=== PATIENT | male | born 1945 | race Caucasian/White ===

== ENCOUNTER 2021-05-27 02:00 | Inpatient (IN) ==
--- NOTE | 2021-05-27 02:14 | Emergency Department Note ---
Impression & Plan Atrial fibrillation with rapid ventricular response, COVID-19, Acute dyspnea Admit to the [facility] service ED Provider Note NAME: IVY LEWIS AGE: 75 SEX: M ARRIVES VIA: Walk-In INFORMANT: Patient ED PROVIDER(S): Angy Francis DO CHIEF COMPLAINT: Lightheadedness and weakness PLAN: Disposition: Admit to the [facility] Condition: Fair MEDICAL DECISION MAKING: This is a 75-year-old male patient presents to the emergency department with lightheadedness and weakness. Patient was noted to be in A. fib with RVR. This is a new finding for him. He was hemodynamically stable. However, the patient was noted to be COVID-positive. His rate was controlled with IV Cardizem. Out of concern for the atrial fibrillation and the thrombogenesis from COVID-19, the patient was bolused with IV heparin and started on a heparin drip. [facility] will evaluate for further management. Triage Nursing notes reviewed and agree with them. Additional history obtained from patient's is at the bedside Vital Signs: reviewed and remarkable for tachycardia and hypertension Differential diagnosis: Cardiac ischemia, electrolyte abnormality, congestive heart failure, STEMI, NSTEMI ER treatment provided: IV Cardizem IV heparin bolus IV heparin drip Diagnostics interpreted by me: ECG: A. fib with RVR at a rate of 111. There is no ST segment elevation or signs of ischemia. There is no ectopy. Cardiac Monitoring: A. fib at a rate of 108 Laboratory studies: See below Imaging studies: As per my interpretation Portable chest x-ray: Cardiomegaly with no acute pulmonary infiltrates or consolidations HPI: 75/M arrives for evaluation of lightheadedness and weakness. Patient has noticed over the past 2 or 3 days that he has had episodes of lightheadedness and weakness. He explains that he develops this warm feeling or sensation and then quickly becomes lightheaded and weak and sometimes feels short of breath. He describes his legs as feeling like rubber. He has never had these episodes before and they seem to resolve if he sits down. Patient has a past medical history of hypertension for which she takes verapamil. ROS: See above HPI for pertinent positives & negatives. A total of 10 systems reviewed and were otherwise negative. PAST MEDICAL HISTORY:Hypertension and gout; previous episode of pneumonia PAST SURGICAL HISTORY:See Below FAMILY HISTORY:See Below SOCIAL HISTORY:Patient lives with his ; quit smoking 50 years ago HOME MEDICATIONS:See list ALLERGIES:See list VITALS:See Below PHYSICAL EXAMINATION: HEENT: Head - normocephalic and atraumatic. Pupils are equal, round, and reactive to light. Extraocular eye muscles are intact, and sclera are anicter ic. Nose - moist nasal mucosa without discharge. Mouth - moist buccal mucosa. Oropharynx is nonerythematous and there is no tonsillar exudate or edema noted. Neck: Supple; no JVD or nuchal rigidity Heart: Tachycardic rate with an irregularly irregular rhythm there is a normal S1 and S2 with no murmurs, clicks, or gallops appreciated. Lungs: Clear to auscultation bilaterally with no wheezes, rales, or rhonchi. Abdomen: Soft, completely nontender, nondistended, with good bowel sounds. There are no palpable pulsatile masses or hepatosplenomegaly. There is no guarding, rigidity, or rebound noted. Extremities: No evidence of cyanosis, clubbing, or edema. There are easily palpable peripheral pulses. Skin: warm and dry with good turgor and no rashes. ED COURSE: Times/Reassessments: 0210 the patient was evaluated in room a 4. A complete history and physical was performed. An order was placed for continuous cardiac monitoring. Patient is in atrial fibrillation with a rapid ventricular response at a rate of 108 An IV lock was initiated and labs were drawn as above. A twelve-lead EKG was obtained. A portable chest x-ray was performed. The patient was given 10 mg of IV Cardizem. His nose was swabbed for COVID. The patient was bolused with IV heparin and started on a heparin drip. I have personally spent greater than 30 minutes of critical care time in the direct management of this patient. This includes bedside care, interpretation of diagnostic studies, and testing, discussion with consultants, patient, and family members, and other required patient management activities. This 30 minutes is in excess of all separately billable procedures. Angy Francis DO Past Med/Surg History Medical History (Updated 05/27/21 @ 05:22 by Angy Francis DO) Hernia Surgical History (Updated 06/15/19 @ 23:08 by Jordana Prather) H/O hernia repair Social History Smoking Status: Former smoker Tobacco Type: Cigarettes Preferred Language: Urdu Feels Safe at Home: Yes Allergies Allergies Allergy/AdvReac Type Severity Reaction Status Date / Time aspirin AdvReac Intermediate nose bleeds Unverified 05/27/21 02:07 Penicillins AdvReac Intermediate Rash Unverified 05/27/21 02:07 Home Meds Home Medications Medication Instructions Recorded Confirmed albuterol sulfate 90 mcg/actuation 2 puff INHALATION DAILY PRN 06/15/19 05/27/21 aerosol inhaler (Ventolin HFA) verapamil 180 mg tablet,extended 180 mg PO HS 06/15/19 05/27/21 release allopurinol 100 mg tablet 100 mg PO DAILY 05/27/21 05/27/21 colchicine 0.6 mg tablet 0.6 mg PO DAILY 05/27/21 05/27/21 cyclobenzaprine 10 mg tablet 10 mg PO TID PRN 05/27/21 05/27/21 fluticasone 500 mcg-salmeterol 50 1 inh INHALATION Q12 05/27/21 05/27/21 mcg/dose blistr powdr for inhalation Results & Data (ED) Vital Signs Vital Signs - 24 hr 05/27/21 02:02 05/27/21 02:39 05/27/21 02:52 Temperature 36.5 C Temperature Source Temporal Artery Scan Pulse Rate 88 Pulse Rate [Apical] 86 70 Pulse Rate from SpO2 Sensor Respiratory Rate 16 13 14 Respiratory Effort / Characteristics Non-Labored Non-Labored Spontaneous Respiratory Depth Normal Blood Pressure 145/105 H Blood Pressure [Left Arm] 160/97 H 131/78 Blood Pressure Mean 118 Blood Pressure Mean [Left Arm] 118 95 Blood Pressure Position Sitting Pulse Oximetry 97 96 97 Oxygen Delivery Method Room Air Room Air Room Air Sepsis Recent Fever Within 48 Hours No Sepsis New/Unexplained Change in Mental Status No Sepsis Action Taken by Nursing No Action Required 05/27/21 03:47 05/27/21 04:00 Temperature Temperature Source Pulse Rate 68 Pulse Rate [Apical] 72 Pulse Rate from SpO2 Sensor 79 Respiratory Rate 17 15 Respiratory Effort / Characteristics Respiratory Depth Blood Pressure 122/81 Blood Pressure [Left Arm] 114/75 Blood Pressure Mean 94 Blood Pressure Mean [Left Arm] 88 Blood Pressure Position Pulse Oximetry 96 96 Oxygen Delivery Method Room Air Sepsis Recent Fever Within 48 Hours Sepsis New/Unexplained Change in Mental Status Sepsis Action Taken by Nursing Laboratory Data Result diagrams: 05/27/21 02:20 05/27/21 02:20 Lab Results 05/27/21 05/27/21 05/27/21 Range/Units 02:20 02:20 02:20 WBC 3.70 L (4.8-10.8) K/uL RBC 4.99 (4.7-6.1) M/uL Hgb 16.6 (14.0-18.0) g/dL Hct 47.0 (42-52) % MCV 94.2 (80-100) fL MCH 33.3 (25-34) pg MCHC 35.3 (32-36) g/dL RDW Std Deviation 44.0 (36.4-46.3) fL RDW Coeff of Mae 12.8 (11.5-14.5) % Plt Count 162 (130-400) K/uL MPV 10.2 (7.4-10.4) fL Immature Gran % (Auto) 0.3 % Neut % (Auto) 35.1 % Lymph % (Auto) 43.8 % Lander % (Auto) 17.8 % Eos % (Auto) 2.7 % Baso % (Auto) 0.3 % Neut # (Auto) 1.30 L (1.4-6.5) K/uL Lymph # (Auto) 1.62 (1.2-3.4) K/uL Lander # (Auto) 0.66 H (0.11-0.59) K/uL Eos # (Auto) 0.10 (0-0.5) K/uL Baso # (Auto) 0.01 (0-0.2) K/uL Immature Gran # (Auto) 0.01 (0.00-0.02) K/uL PT (9.0-12.0) Seconds INR (0.9-1.1) APTT (21.0-31.0) Seconds PTT Ratio Sodium 136 (136-145) mmol/L Potassium 4.3 (3.5-5.1) mmol/L Chloride 107 (98-107) mmol/L Carbon Dioxide 22 (21-32) mmol/L Anion Gap 7 (3-11) BUN 16 (6-23) mg/dl Creatinine 1.15 (0.6-1.4) mg/dl Est Cr Clr Drug Dosing 64.4 ml/min Est GFR ( Amer) 71.2 ml/min Est GFR (Non-Af Amer) 61.5 ml/min BUN/Creatinine Ratio 13.9 (10-20) Glucose 116 H (70-99(Fasting)) mg/dl Calcium 9.5 (8.5-10.1) mg/dl Magnesium 2.0 (1.7-2.4) mg/dl Total Bilirubin 0.8 (0.2-1.0) mg/dl AST 45 H (13-39) U/L ALT 41 (7-52) U/L Alkaline Phosphatase 61 (34-104) U/L Troponin I < 0.03 (0-0.04) ng/ml Total Protein 7.4 (6.0-8.3) gm/dl Albumin 4.5 (3.4-5.0) gm/dl Globulin 2.9 (2.5-4.0) gm/dl Albumin/Globulin Ratio 1.6 (0.9-2) TSH 8.564 H (0.300-4.500) uIu/ml Free T4 0.80 (0.61-1.60) ng/dl SARS-CoV-2, RNA, NAAT (NEGATIVE) 05/27/21 05/27/21 Range/Units 02:20 02:57 WBC (4.8-10.8) K/uL RBC (4.7-6.1) M/uL Hgb (14.0-18.0) g/dL Hct (42-52) % MCV (80-100) fL MCH (25-34) pg MCHC (32-36) g/dL RDW Std Deviation (36.4-46.3) fL RDW Coeff of Mae (11.5-14.5) % Plt Count (130-400) K/uL MPV (7.4-10.4) fL Immature Gran % (Auto) % Neut % (Auto) % Lymph % (Auto) % Lander % (Auto) % Eos % (Auto) % Baso % (Auto) % Neut # (Auto) (1.4-6.5) K/uL Lymph # (Auto) (1.2-3.4) K/uL Lander # (Auto) (0.11-0.59) K/uL Eos # (Auto) (0-0.5) K/uL Baso # (Auto) (0-0.2) K/uL Immature Gran # (Auto) (0.00-0.02) K/uL PT 10.2 (9.0-12.0) Seconds INR 1.0 (0.9-1.1) APTT 26.8 (21.0-31.0) Seconds PTT Ratio 1.0 Sodium (136-145) mmol/L Potassium (3.5-5.1) mmol/L Chloride (98-107) mmol/L Carbon Dioxide (21-32) mmol/L Anion Gap (3-11) BUN (6-23) mg/dl Creatinine (0.6-1.4) mg/dl Est Cr Clr Drug Dosing ml/min Est GFR ( Amer) ml/min Est GFR (Non-Af Amer) ml/min BUN/Creatinine Ratio (10-20) Glucose (70-99(Fasting)) mg/dl Calcium (8.5-10.1) mg/dl Magnesium (1.7-2.4) mg/dl Total Bilirubin (0.2-1.0) mg/dl AST (13-39) U/L ALT (7-52) U/L Alkaline Phosphatase (34-104) U/L Troponin I (0-0.04) ng/ml Total Protein (6.0-8.3) gm/dl Albumin (3.4-5.0) gm/dl Globulin (2.5-4.0) gm/dl Albumin/Globulin Ratio (0.9-2) TSH (0.300-4.500) uIu/ml Free T4 (0.61-1.60) ng/dl SARS-CoV-2, RNA, NAAT POSITIVE A* (NEGATIVE) Administered Medications Heparin Sodium/Dextrose (Heparin Sodium/Dextrose) 25,000 units in 500 mls @ 30 mls/hr IV .[id number] [facility]; Protocol Stop: 06/26/21 04:14 Last Admin: 05/27/21 04:27 Dose: 1,500 units/hr, 30 mls/hr Documented by: [id number] Cosigned by: [id number] Discontinued Medications Diltiazem HCl (Diltiazem Hcl 5 Mg/Ml 5 Ml Vial) 10 mg IV NOW STA Stop: 05/27/21 02:25 Last Admin: 05/27/21 02:34 Dose: 10 mg Documented by: [id number] Cosigned by: [id number] Heparin Sodium (Porcine) (Heparin Sod (Porcine) 1000 Unit/Ml) 1 units IV NOW ONE Stop: 05/27/21 04:06 Last Admin: 05/27/21 04:28 Dose: 5,000 units Documented by: [id number] Cosigned by: [id number] Heparin Sodium/Dextrose (Heparin Iv Adult Wt-Based Standard With Bolus Protocol) 1 ea IV NOW STA; Protocol Stop: 05/27/21 03:51 Last Admin: 05/27/21 04:29 Dose: Not Given Documented by: [id number] Discharge Plan Visit Data Chief Complaint: Illness Stated Complaint: BP ISSUES, LIGHT HEADED ED Provider: Angy Francis Discharge Problem: Atrial fibrillation with rapid ventricular response, COVID-19, Acute dyspnea Forms Stand Alone Forms: My [facility] Prescriptions Prescriptions: No Action verapamil 180 mg tablet extended release 180 mg PO HS RF: 0 albuterol sulfate [Ventolin HFA] 90 mcg/actuation HFA aerosol inhaler 2 puff INHALATION DAILY PRN (Reason: Shortness Of Breath Or Wheezing) RF: 0 allopurinol 100 mg tablet 100 mg PO DAILY RF: 0 fluticasone propion-salmeterol 500-50 mcg/dose blister with device 1 inh INHALATION Q12 RF: 0 colchicine 0.6 mg tablet 0.6 mg PO DAILY RF: 0 cyclobenzaprine 10 mg tablet 10 mg PO TID PRN (Reason: Muscle Spasm) RF: 0 Referrals Referrals: Gregoria Nagel MD [Primary Care Provider] -
[2021-05-27] MEDS ORDERED: dilTIAZem HCl 5 MG/ML 5 ML VIAL IV STA (02:24)
[2021-05-27 02:42] LABS: Basophils # (auto) 0.01 K/uL (0-0.2); Basophils % (auto) 0.3 %; Eosinophils % (auto) 2.7 %; Hemoglobin 16.6 g/dL (14.0-18.0); Immature Granulocytes # (auto) 0.01 K/uL (0.00-0.02); Immature Granulocytes % (auto) 0.3 %; Lymphocytes # (auto) 1.62 K/uL (1.2-3.4); Lymphocytes % (auto) 43.8 %; Mean Corpuscular Hemoglobin 33.3 pg (25-34); Mean Corpuscular Hgb Conc 35.3 g/dL (32-36); Mean Corpuscular Volume 94.2 fL (80-100); Mean Platelet Volume 10.2 fL (7.4-10.4); Monocytes # (auto) 0.66 K/uL (0.11-0.59); Monocytes % (auto) 17.8 %; Neutrophils % (auto) 35.1 %; Platelet Count 162 K/uL (130-400); RDW Coefficient of Variation 12.8 % (11.5-14.5); Red Blood Count 4.99 M/uL (4.7-6.1)
[2021-05-27 03:00] LABS: Troponin I < 0.03 ng/ml (0-0.04)
[2021-05-27 03:03] LABS: Alanine Aminotransferase 41 U/L (7-52); Albumin Globulin Ratio 1.6 (0.9-2); Albumin Level 4.5 gm/dl (3.4-5.0); Alkaline Phosphatase 61 U/L (34-104); Anion Gap 7 (3-11); Aspartate Aminotransferase 45 U/L (13-39); BUN Creatinine Ratio 13.9 (10-20); Bilirubin,Total 0.8 mg/dl (0.2-1.0); Blood Urea Nitrogen 16 mg/dl (6-23); Calcium 9.5 mg/dl (8.5-10.1); Carbon Dioxide 22 mmol/L (21-32); Chloride 107 mmol/L (98-107); Creatinine Clr Calc Pharmacy 64.4 ml/min; Est GFR (African American) 71.2 ml/min; Est GFR (Non-African American) 61.5 ml/min; Globulin 2.9 gm/dl (2.5-4.0); Glucose 116 mg/dl (70-99(Fasting)); Potassium 4.3 mmol/L (3.5-5.1); Sodium 136 mmol/L (136-145); Total Protein 7.4 gm/dl (6.0-8.3)
[2021-05-27 03:14] LABS: Thyroid Stimulating Hormone 8.564 uIu/ml (0.300-4.500)
[2021-05-27] MEDS ORDERED: Heparin IV Adult Wt-Based Standard WITH Bolus Protocol IV STA (03:50)
[2021-05-27 03:54] LABS: T4 Free Thyroxine 0.8 ng/dl (0.61-1.60)
[2021-05-27] MEDS ORDERED: HEPARIN SOD (PORCINE) 1000 UNIT/ML IV ONE (04:05)
[2021-05-27 04:06] LABS: Partial Thromboplastin Time 26.8 Seconds (21.0-31.0); Prothrombin Time 10.2 Seconds (9.0-12.0)
[2021-05-27] MEDS: HEPARIN SODIUM/DEXTROSE 25,000 UNITS/500 ML BAG IV SCH ×2 (04:27→21:59)
[2021-05-27] MEDS ORDERED: OPTIRAY 320 125ml IV ONE (05:45)
--- NOTE | 2021-05-27 07:06 | XRay Report ---
XR chest 1V portable CLINICAL HISTORY: Dysrhythmia. Evaluate cardiopulmonary status COMPARISON STUDY: No previous studies for comparison. TECHNIQUE: 1 view of the chest FINDINGS: Single frontal view of the chest demonstrates the cardiomediastinal silhouette to be within normal li mits. The lungs are clear of alveolar opacities. There is no evidence for pleural effusion. There is no evidence for vascular congestion. There is no acute osseous pathology. IMPRESSION: No acute cardiopulmonary disease. ACT 112: Negative or not required by law. Electronically signed by: John Nixon M.D. 05/27/2021 7:04 AM
--- NOTE | 2021-05-27 07:23 | History and Physical Report ---
DATE OF ADMISSION: 05/27/2021. CHIEF COMPLAINT: Rapid atrial fibrillation, COVID. HISTORY OF PRESENT ILLNESS: This is a 75-year-old male with past medical history significant for chronic gout at multiple sites, hyperlipidemia, chronic bronchitis, history of multiple pulmonary nodules, chronic cough, sleep apnea, nocturnal hypoxemia, laryngopharyngeal reflux disease, moderate persistent asthma without complication, Raynaud syndrome, history of SVT, hypertension, GERD, irritable bowel syndrome, chronic kidney disease stage III, hypertension, generalized osteoarthritis, obesity, who lives at home with his , presents with not feeling well and feeling hot and cold since last couple of days. Symptoms seemed improved, but in the middle of night at 11:00 again, he was feeling warm and hot and also lightheaded and weak, that is the reason he came to the hospital and found to be in rapid AFib and heart rates were controlled with IV Cardizem in the ER and COVID test came back positive. Currently, resting comfortably and hemodynamically stable. His oxygen saturations are okay, not requiring any oxygen. He denies any headache. The patient is very hard of hearing. No blurred visions, no runny nose, no sore throat. He has chronic cough for the last 5 years. Denies any chest pain, no shortness of breath, no nausea, no vomiting. The last 2 to 3 days, he has having pain in left upper quadrant, mild abdominal pain. He usually has alternating diarrhea and constipation and he had normal bowel movements today. He says he micturates a lot. No swelling in the legs. Ambulating okay. ALLERGIES: ASPIRIN, PENICILLINS. PAST MEDICAL HISTORY: As mentioned above. PAST SURGICAL HISTORY: Colonoscopy with biopsy, EGDs, EGD with endoscopic ultrasound, left knee arthroscopy, lumbar spine fusion surgery, repair of inguinal hernia, right revision of the ulnar nerve at elbow, right tendon sheath incision. MEDICATIONS: The patient is on albuterol sulfate 2 puffs inhalation daily p.r.n., allopurinol 100 mg p.o. daily, colchicine 0.6 mg p.o. daily, cyclobenzaprine 10 mg p.o. daily p.r.n., fluticasone/salmeterol 1 inhalation b.i.d., verapamil 180 mg p.o. at bedtime. FAMILY HISTORY: Significant for mother has asthma, cancer, diabetes, kidney stones; father has heart attack. SOCIAL HISTORY: , former smoker, quit in 1970. Smoked 1 pack a day for 6 years. Alcohol social. No drug use. REVIEW OF SYSTEMS: As per HPI. Rest of the review of systems is negative. PHYSICAL EXAMINATION: GENERAL: The patient is obese, not in acute distress. VITAL SIGNS: Temperature 36.5, pulse 70, respiratory rate 18, blood pressure 126/78, oxygen 97% on room air. HEENT: Pupils equal, round and reactive to light. Oral mucosa moist. NECK: No JVD, no neck masses. CARDIOVASCULAR: S1 and S2 heard. irregular rhythm. No murmur, no gallop. RESPIRATORY SYSTEM: Normal AP diameter. No accessory muscle use. No wheezing, no crackles. ABDOMEN: Soft, bowel sounds present, nontender, no distention. CENTRAL NERVOUS SYSTEM: Cranial nerves II through XII are grossly intact, nonfocal. EXTREMITIES: No edema, no erythema. LABORATORY DATA: WBC 3.7, hemoglobin 16.6, hematocrit 47, platelets 162. PT 10.2, INR 1, APTT 26.8. Sodium 136, potassium 4.3, chloride 107, bicarbonate 22, BUN 16, creatinine 1.1, serum glucose 116, calcium 9.5, magnesium 2, total bilirubin 0.5, AST 45, ALT 41, alkaline phosphatase 61. Troponin I less than 0.03. TSH 8.5, free T4 of 0.8. SARS-CoV-2 positive. IMAGING DATA: Chest x-ray, no acute findings. EKG: Atrial fibrillation with rapid ventricular response at a rate of 111, no previous ECGs available. ASSESSMENT AND PLAN: This is a 75-year-old male who presents with new-onset atrial fibrillation. 1. New atrial fibrillation with rapid ventricular response: Currently after receiving a dose of IV Cardizem in the ER. IV heparin started in the ER, which will be continued. Will follow serial enzymes, echocardiogram. Will keep n.p.o. until seen by cardiology and also will continue home verapamil 180 mg p.o. at bedtime. Will place on IV Lopressor p.r.n. for now. Follow echocardiogram. Closely monitor in the tele floor. 2. History of hypertension: Continue verapamil. 3. History of sleep apnea: Continue CPAP at bedtime. 4. COVID-19: Currently saturations are okay. Does not meet criteria for steroids or remdesivir. Will monitor. Because of rapid atrial fibrillation, will get a CT of the chest to rule out any pulmonary embolism. 5. History of gout: Continue allopurinol and colchicine. 6. History of asthma: Continue home inhalers. Will place on nebs p.r.n. 7. History of supraventricular tachycardia: On verapamil. 8. Chronic kidney disease stage III: Presently with creatinine of 1.1. Will follow the repeat labs. 9. Deep venous thrombosis prophylaxis: On IV heparin. DISPOSITION: Closely monitor in the tele floor. Level 1 full code. Expect to discharge home and follow with family doctor. Job ID: [id number] [facility] CENTERRadha
--- NOTE | 2021-05-27 07:29 | CT Scan Report ---
CT angio chest PE protocol CLINICAL HISTORY: Covid positive. Shortness of breath. Evaluate for pulmonary embolus COMPARISON STUDY: Portable chest from 05/27/2021 CT DOSE: 676.54 mGy.cm TECHNIQUE: CT Angio of the chest was performed.followed by image post processing with coronal, and s agittal MIP reformats. Contrast Volume: ml FINDINGS: Vasculature: There is homogeneous perfusion of the pulmonary vasculature bilaterally. No intraluminal filling defects or evidence for pulmonary embolus is seen. Airway: The airway is clear. No endobronchial lesion is identified. Lungs: There is a 4 mm right upper lobe pulmonary nodule as seen on image 173. There is a partially c alcified 7 mm pulmonary nodule within the right middle lobe as seen on image 138. No other definite p ulmonary nodules are identified. Mild to moderate centrilobular emphysematous changes are present mary anne aterally. The lungs are otherwise clear of acute alveolar opacities or air bronchograms. No groundglass opacit ies are identified. Pleura: There is no evidence for pleural effusion. There is no evidence for pneumothorax. Mediastinum: There is no evidence for pathologic adenopathy. The heart size is within normal limits. Coronary artery calcification is present. The thoracic aorta is within normal limits. There is no jenna dence for pericardial effusion. Upper abdomen:The adrenal glands are normal bilaterally. There is small hiatal hernia. Osseous structures: There is no acute osseous pathology. Impression: 1. No CTA evidence for pulmonary embolus. 2. No acute chest disease. 3. However, there are 2 pulmonary nodules present on the right and follow-up is recommended utilizing Fleischner criteria. 4. Coronary artery calcification. 5. Small hiatal hernia. Please refer to below summary of Fleischner criteria recommendations for follow-up of incidental CT n odules (D[place] Gomez, Guidelines for management of small pulmonary nodules detected on CT scans: A sta tement from the Fleischner Society, Radiology 237: [phone].) SOLID NODULES Solitary nodule size: <6 mm * low risk patients: no follow-up needed * high risk patients: optional CT at 12 months Solitary nodule size: 6-8 mm * low risk patients: follow-up at 6-12 months, then consider further follow-up at 18-24 months * high risk patients: initial follow-up CT at 6-12 months and then at 18-24 months if no change Solitary nodule size: >8 mm * either low or high risk patients - consider follow-up CT at 3 months, and/or CT-PET, and/or biopsy Multiple nodules size: <6 mm * low risk patients: no routine follow-up * high risk patients: optional CT at 12 months Multiple nodules size: 6-8 mm * low risk patients: follow-up at 3-6 months, then consider further follow-up at 18-24 months * high risk patients: follow-up at 3-6 months, then at 18-24 months if no change Multiple nodules size: >8 mm * low risk patients: follow-up at 3-6 months, then consider further follow-up at 18-24 months * high risk patients: follow-up at 3-6 months, then at 18-24 months if no change Note: newly detected indeterminate nodule in persons 35 years of age or older. * low risk patients: minimal or absent history of smoking and/or other known risk factors * high risk patients: history of smoking or of other known risk factors (e.g. first degree relative with lung cancer, or exposure to asbestos, radon, uranium) * if a nodule up to 8 mm is partly solid or is ground glass further follow-up is required after 24 m onths to exclude possible slow growing adenocarcinoma (PETERSON) SUBSOLID NODULES Solitary pure ground-glass nodule * nodule size <6 mm - no CT follow-up required * nodule size >=6 mm - follow-up CT at 6-12 months, then every 2 years until 5 years Solitary part-solid nodule * nodule size <6 mm - no CT follow-up required * nodule size >=6 mm - follow-up CT at 3-6 months. If unchanged, and solid component remains <6 mm, then annual follow-up for 5 years Multiple subsolid nodules * nodule size <6 mm - follow-up CT at 3-6 months, consider further follow-up at 2 and 4 years if sta ble * nodule size >=6 mm - follow-up CT at 3-6 months, subsequent management based on the most suspiciou s nodule(s) ACT 112: Positive. There are findings on this exam that require communication between the performing entity and the patient following Patient Test Result Information Act ([place] Act 112) guidelines. Electronically signed by: John Nixon M.D. 05/27/2021 7:27 AM
[2021-05-27] MEDS ORDERED: LEVALBUTEROL HCL 1.25 MG/3 ML NEB NEB PRN (08:41)
[2021-05-27] MEDS ORDERED: ALBUTEROL HFA 8 GM INHALER INH PRN (08:41)
[2021-05-27] MEDS ORDERED: ACETAMINOPHEN 325 MG TAB PO PRN (08:41)
[2021-05-27] MEDS ORDERED: NITROGLYCERIN SL 0.4 MG/TAB TAB SL PRN (08:41)
[2021-05-27] MEDS ORDERED: ONDANSETRON INJ 2 MG/ML 2 ML VIAL IV PRN (08:41)
[2021-05-27] MEDS ORDERED: METOPROLOL TARTRATE 1 MG/ML VIAL IV PRN (08:41)
[2021-05-27] MEDS ORDERED: SODIUM CHLORIDE 0.9% 1000ML 1,000 ML IV SCH (08:41)
[2021-05-27] MEDS ORDERED: CYCLOBENZAPRINE HCL 10 MG TAB PO PRN (08:41)
[2021-05-27] MEDS: FLUTICASONE/VILANTEROL 200/25MCG 14 PUFFS/INHALER INH SCH (10:14)
[2021-05-27] MEDS: allopurinoL 100 MG TAB PO SCH (10:14)
[2021-05-27] MEDS: COLCHICINE 0.6 MG TAB PO SCH (10:14)
--- NOTE | 2021-05-27 10:56 | Cardiology Consultation ---
Date of Consultation May 27, 2021 Assessment & Plan (1) Atrial fibrillation with rapid ventricular response: (2) Coronary artery calcification seen on CAT scan: (3) COVID-19: 75-year-old male presents with acute COVID-19 infection and hypoxia. Atrial fibrillation with borderline rate control on telemetry. Recommend continuing verapamil ER 180 mg nightly. Continue IV anticoagulation with heparin. Transition to Eliquis 5 mg twice daily prior to discharge. Resting 2D transthoracic echocardiogram pending at this time. CTA of the chest demonstrating coronary artery calcifications (images personally reviewed). Recommend addition of statin therapy. History of Present Illness Reason for Consultation: Paroxysmal atrial fibrillation Requesting Physician: Dr. Baez Attending Physician: Carolyn Baez MD History of Present Illness 75-year-old male presented to the emergency department with lightheadedness, shortness of breath, cough, and flushing. Checked his blood pressure via his monitor which reported an irregular heartbeat. He came to the ER for further evaluation and treatment. In the ER telemetry reveals atrial fibrillation with borderline rate control. This is a new diagnosis. Denies any palpitations or chest discomfort. No personal history of coronary disease, congestive heart failure, diabetes, or rheumatic fever as a child. History of HTN, JUS, and PSVT. Currently resting comfortably. Denies palpitations. Telemetry demonstrates atrial fibrillation with heart rate ranging 90-100 bpm. No lightheadedness, dizziness, syncope, or near syncope. Denies orthopnea, PND, lower extremity edema, or claudication. is present at bedside. She offers no additional concerns/complaints. Patient is unvaccinated. Allergies Allergy/AdvReac Type Severity Reaction Status Date / Time aspirin AdvReac Intermediate nose bleeds Unverified 05/27/21 02:07 Penicillins AdvReac Intermediate Rash Unverified 05/27/21 02:07 Home Medications Medication Instructions Recorded Confirmed Type albuterol sulfate 90 mcg/actuation 2 puff INHALATION DAILY PRN 06/15/19 05/27/21 History aerosol inhaler (Ventolin HFA) verapamil 180 mg tablet,extended 180 mg PO HS 06/15/19 05/27/21 History release allopurinol 100 mg tablet 100 mg PO DAILY 05/27/21 05/27/21 History bisacodyl 5 mg tablet,delayed 5 mg PO DAILY PRN 05/27/21 05/27/21 History release (Dulcolax (bisacodyl)) colchicine 0.6 mg tablet 0.6 mg PO DAILY 05/27/21 05/27/21 History cyclobenzaprine 10 mg tablet 10 mg PO TID PRN 05/27/21 05/27/21 History fluticasone 500 mcg-salmeterol 50 1 inh INHALATION Q12 05/27/21 05/27/21 History mcg/dose blistr powdr for inhalation Patient History Medical History Hernia Surgical History H/O hernia repair Social History Smoking Status: Former smoker Tobacco Type: Cigarettes Hx Alcohol Use: Yes Alcohol type: wine Hx Substance Use: No Preferred Language: Kiswahili Communication Ability: Effective Resin Remover Required: No Beliefs That Will Affect Care: None Current Living Situation: Spouse Other Information That Helps Us Care for You: No Feels Safe at Home: Yes Safety Concerns: Feels Safe At This Time Assistive Devices: BiPap, Denture - Upper and Denture - Lower Assistive Devices Comment: Does not have lower at this time Review of Systems Review of Systems: All systems reviewed & are unremarkable except as noted in Subjective Physical Exam 2 Constitutional: well developed, well nourished and + obese; no acute distress Respiratory: normal respiratory effort; no respiratory distress, no labored breathing and no retractions Auscultation: + crackles (Bilateral bases and midlung field); no rhonchi and no wheezes Cardiovascular: Rate/Rhythm: + irregularly irregular Heart Sounds: normal S1 and normal S2; no murmur Vessels: no JVD and no carotid bruit Extremities: no edema Gastrointestinal (Abdomen): Inspection/Auscultation: abdomen normal to inspection and normal bowel sounds; abdomen not distended Percussion/Palpation: abdomen soft; abdomen nontender, no guarding and abdomen not rigid Neurologic: CN's II-XI intact bilaterally and moves all extremities; no focal motor deficits Motor/Sensory: no tremor Psychiatric: A+Ox3, euthymic affect Results & Data ([facility]) Vital Signs (Past 12 Hours) Vital Signs Temp Pulse Pulse Resp BP BP Pulse Ox 05/27/21 08:00 37.0 C 86 22 131/88 99 05/27/21 07:00 37.0 C 77 22 137/79 97 05/27/21 06:30 60 18 126/87 99 05/27/21 06:00 63 15 130/80 94 05/27/21 05:00 70 18 126/78 97 05/27/21 04:30 78 18 132/77 97 05/27/21 04:00 68 15 122/81 96 05/27/21 03:47 72 17 114/75 96 05/27/21 02:52 70 14 131/78 97 05/27/21 02:39 86 13 160/97 H 96 05/27/21 02:02 36.5 C 88 16 145/105 H 97
[2021-05-27 11:06] LABS: Partial Thromboplastin Ratio 2.2
[2021-05-27 11:35] LABS: Partial Thromboplastin Time 58.8 Seconds (21.0-31.0)
--- NOTE | 2021-05-27 13:29 | Communication Note ---
Date of Service: May 27, 2021 Patient seen and examined. Agree with findings and plans as detailed by Dr Fuentes in H/P this morning Continue hep drip. Will change to eliquis prior to DC Tele monitor Appreciate cards c/s
[2021-05-27 18:04] LABS: Partial Thromboplastin Ratio 2.4
[2021-05-27 18:09] LABS: Partial Thromboplastin Time 63.9 Seconds (21.0-31.0)
[2021-05-27] MEDS ORDERED: ATORVASTATIN 20 MG TAB PO SCH (21:00)
[2021-05-27] MEDS ORDERED: VERAPAMIL HCL 180 MG TABCR PO SCH (21:00)
--- NOTE | 2021-05-27 21:17 | Electrocardiogram Report ---
Test Reason : Blood Pressure : / mmHG Vent. Rate : 111 BPM Atrial Rate : 136 BPM P-R Int : 000 ms QRS Dur : 082 ms QT Int : 324 ms P-R-T Axes : 000 -11 097 degrees QTc Int : 440 ms Atrial fibrillation with rapid ventricular response Nonspecific T wave abnormality Abnormal ECG No previous ECGs available Confirmed by Benton Chow ([id number]) on 05/27/2021 9:17:26 PM Referred By: REFERRED SELF Confirmed By:Benton Chow
[2021-05-28] MEDS: FLUTICASONE/VILANTEROL 200/25MCG 14 PUFFS/INHALER INH SCH (07:49)
[2021-05-28] MEDS: allopurinoL 100 MG TAB PO SCH (07:50)
[2021-05-28] MEDS: COLCHICINE 0.6 MG TAB PO SCH (07:50)
[2021-05-28 08:04] LABS: Basophils # (auto) 0.01 K/uL (0-0.2); Basophils % (auto) 0.4 %; Eosinophils # (auto) 0.02 K/uL (0-0.5); Eosinophils % (auto) 0.7 %; Hematocrit (blood only) 42.2 % (42-52); Hemoglobin 14.8 g/dL (14.0-18.0); Immature Granulocytes # (auto) 0.01 K/uL (0.00-0.02); Immature Granulocytes % (auto) 0.4 %; Lymphocytes # (auto) 0.87 K/uL (1.2-3.4); Lymphocytes % (auto) 32.1 %; Mean Corpuscular Hemoglobin 32.6 pg (25-34); Mean Corpuscular Hgb Conc 35.1 g/dL (32-36); Mean Platelet Volume 10.3 fL (7.4-10.4); Monocytes # (auto) 0.37 K/uL (0.11-0.59); Monocytes % (auto) 13.7 %; Neutrophils # (auto) 1.43 K/uL (1.4-6.5); Neutrophils % (auto) 52.7 %; Platelet Count 141 K/uL (130-400); RDW Coefficient of Variation 12.7 % (11.5-14.5); Red Blood Count 4.54 M/uL (4.7-6.1); White Blood Count 2.71 K/uL (4.8-10.8)
[2021-05-28 08:24] LABS: Anion Gap 6 (3-11); BUN Creatinine Ratio 14.3 (10-20); Blood Urea Nitrogen 16 mg/dl (6-23); C Reactive Protein < 0.50 mg/dl (0-0.5); Calcium 9.1 mg/dl (8.5-10.1); Carbon Dioxide 24 mmol/L (21-32); Chloride 105 mmol/L (98-107); Creatinine Clr Calc Pharmacy 65.4 ml/min; Est GFR (African American) 73.6 ml/min; Est GFR (Non-African American) 63.5 ml/min; Glucose 126 mg/dl (70-99(Fasting)); Magnesium 1.9 mg/dl (1.7-2.4); Potassium 3.9 mmol/L (3.5-5.1); Sodium 135 mmol/L (136-145)
[2021-05-28 08:30] LABS: Partial Thromboplastin Ratio 2.7
[2021-05-28 08:36] LABS: Partial Thromboplastin Time 70.3 Seconds (21.0-31.0)
[2021-05-28] MEDS ORDERED: APIXABAN 5 MG TABLET PO SCH (09:45)
--- NOTE | 2021-05-28 11:54 | Discharge Summary ---
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 Symptoms seemed improved, but in the middle of night at 11:00 again, he was feeling warm and hot and also lightheaded and weak, that is the reason he came to the hospital and found to be in rapid AFib and heart rates were controlled with IV Cardizem in the ER and COVID test came back positive. Currently, resting comfortably and hemodynamically stable. His oxygen saturations are okay, not requiring any oxygen. He denies any headache. The patient is very hard of hearing. No blurred visions, no runny nose, no sore throat. He has chronic cough for the last 5 years. Denies any chest pain, no shortness of breath, no nausea, no vomiting. The last 2 to 3 days, he has having pain in left upper quadrant, mild abdominal pain. He usually has alternating diarrhea and constipation and he had normal bowel movements today. He says he micturates a lot. No swelling in the legs. Ambulating okay. Admission Exam Per Admitting Provider GENERAL: The patient is obese, not in acute distress. VITAL SIGNS: Temperature 36.5, pulse 70, respiratory rate 18, blood pressure 126/78, oxygen 97% on room air. HEENT: Pupils equal, round and reactive to light. Oral mucosa moist. NECK: No JVD, no neck masses. CARDIOVASCULAR: S1 and S2 heard. irregular rhythm. No murmur, no gallop. RESPIRATORY SYSTEM: Normal AP diameter. No accessory muscle use. No wheezing, no crackles. ABDOMEN: Soft, bowel sounds present, nontender, no distention. CENTRAL NERVOUS SYSTEM: Cranial nerves II through XII are grossly intact, nonfocal. EXTREMITIES: No edema, no erythema. Principal Diagnosis New Atrial Fibrillation Positive COVID 19 test Discharge Exam Constitutional + well hydrated; no acute distress Eyes PERRL, conjunctivae normal, anicteric sclerae ENMT external ear and nose normal, oropharynx normal Respiratory normal respiratory effort, lungs clear to auscultation Cardiovascular Rate/Rhythm: regular rate and regular rhythm S1 S2 Gastrointestinal (Abdomen) normal bowel sounds, soft, nontender, no hepatosplenomegaly Musculoskeletal no cyanosis or clubbing, extremities motor strength 5/5 Neurologic PERRL, EOMI, accommodation nl, no face palsy, no dysarthria Psychiatric A+Ox3, euthymic affect Discharge Data Allergies Allergy/AdvReac Type Severity Reaction Status Date / Time aspirin AdvReac Intermediate nose bleeds Unverified 05/27/21 02:07 Penicillins AdvReac Intermediate Rash Unverified 05/27/21 02:07 Consultations 05/27/21 03:49 ED Decision to Admit Stat 05/27/21 08:41 Consult Cardiology Routine Ordered Studies 05/27/21 05:17 CT angio chest PE protocol Urgent Vasculature: There is homogeneous perfusion of the pulmonary vasculature bilaterally. No intraluminal filling defects or evidence for pulmonary embolus is seen. Airway: The airway is clear. No endobronchial lesion is identified. Lungs: There is a 4 mm right upper lobe pulmonary nodule as seen on image 173. There is a partially calcified 7 mm pulmonary nodule within the right middle lobe as seen on image 138. No other definite pulmonary nodules are identified. Mild to moderate centrilobular emphysematous changes are present bilaterally. The lungs are otherwise clear of acute alveolar opacities or air bronchograms. No groundglass opacities are identified. Pleura: There is no evidence for pleural effusion. There is no evidence for pneumothorax. Mediastinum: There is no evidence for pathologic adenopathy. The heart size is within normal limits. Coronary artery calcification is present. The thoracic aorta is within normal limits. There is no evidence for pericardial effusion. Upper abdomen:The adrenal glands are normal bilaterally. There is small hiatal hernia. Osseous structures: There is no acute osseous pathology. Impression: 1. No CTA evidence for pulmonary embolus. 2. No acute chest disease. 3. However, there are 2 pulmonary nodules present on the right and follow-up is recommended utilizing Fleischner criteria. 4. Coronary artery calcification. 5. Small hiatal hernia. Hospital Course (1) Atrial fibrillation with rapid ventricular response: (2) Coronary artery calcification seen on CAT scan: (3) COVID-19: Patient's shortness of breath resolved Patient had Atrial fibrillation with RVR. Was started on heparin drip. Now transition to eliquis Discussed with Specimen Boss Dr Shah today. He recommends increasing home verapamil to 240mg HS Patient started on atorvastatin due to coronary calcification noted on CT chest. Patient to follow up with Primary Doctor Called and updated her as well Total Time Total Time Spent Total Time Spent (In Minutes): 45 Total Time Includes: Examination of the Patient, Discharge Planning, Medication Reconciliation and Communication With Other Providers Discharge Plan Discharge Items Patient Disposition: Home - Self-Care Reason For Visit: ILLNESS Discharge Diagnosis: New Atrial Fibrillation Positive COVID 19 test Activity: Resume your previous activity Non-emergency contact: Primary Care Provider and Specimen Boss Call non-emergency contact if: you have any medication questions and your symptoms worsen Follow-up/Referrals: Gregoria Nagel MD [Primary Care Provider] - Diet: Heart Healthy Addtl Attending Provider Instructions: Mr Laboy. You came to the hospital complaining of feeling unwell with shortness of breath. You were evaluated and found to have Atrial fibrillation. You were started on blood thinner to reduce risk of stroke associated with this abnormal heart rhythm. You also tested positive for COVID [address] chest did not show pneumonia or blood clot but showed coronary artery calcification. Hence, you were started on atorvastatin. You also had some nodules which is known. Your verapamil was increased to 240mg at bedtime per Cardiology recommendations Please ensure follow up with your Primary Doctor and Cardiology. It was a pleasure taking care of you. Pending Studies at Discharge: No Stand-Alone Forms: My [facility], Smoking Cessation Medications and DC Order Prescriptions: New atorvastatin 20 mg Tablet 20 mg PO HS Qty: 30 RF: 0 Eliquis 5 mg Tablet 5 mg PO BID Qty: 60 RF: 0 Continued albuterol sulfate [Ventolin HFA] 90 mcg/actuation HFA aerosol inhaler 2 puff INHALATION DAILY PRN (Reason: Shortness Of Breath Or Wheezing) RF: 0 allopurinol 100 mg tablet 100 mg PO DAILY RF: 0 fluticasone propion-salmeterol 500-50 mcg/dose blister with device 1 inh INHALATION Q12 RF: 0 colchicine 0.6 mg tablet 0.6 mg PO DAILY RF: 0 cyclobenzaprine 10 mg tablet 10 mg PO TID PRN (Reason: Muscle Spasm) RF: 0 bisacodyl [Dulcolax (bisacodyl)] 5 mg Tablet,Delayed Release (Dr/Ec) 5 mg PO DAILY PRN (Reason: Constipation) RF: 0 Changed verapamil 180 mg tablet extended release 240 mg PO HS Qty: 45 RF: 0 Discharge Orders: Discharge Order (Routine); Ordered 05/28/21 Ordered By: Carolyn Felder/Other Patient Handouts: Eliquis Oral Tablet 5 mg, ED Atrial Fibrillation Admission Data Admit Date/Time: 05/27/21 05:16 Attending Provider: Carolyn Baez I. Admit Provider: Lee Fuentes Primary Care Provider: Gregoria Nagel Other Providers: Lee Fuentes ; Robb Patel ; Aubrey Smith ; Pablo Cisneros ; Sanju Dixon ; Edgar Machuca ; Dario Blum ; Marly jeffrey,Lisa Chao ; Kandis Epperson ; Dafne Qureshi ; Francisco Malagon Other Interventions: Discharge Summary Assessment (RN) Last Done: 05/28/21 15:14
--- NOTE | 2021-05-29 07:25 | Electrocardiogram Report ---
Test Reason : Blood Pressure : / mmHG Vent. Rate : 057 BPM Atrial Rate : 057 BPM P-R Int : 166 ms QRS Dur : 078 ms QT Int : 440 ms P-R-T Axes : 038 -08 053 degrees QTc Int : 428 ms Sinus bradycardia Otherwise normal ECG When compared with ECG of 27-MAY-2021 02:10, Sinus rhythm has replaced Atrial fibrillation Vent. rate has decreased BY 54 BPM Confirmed by Arvin Christensen ([id number]) on 05/29/2021 7:24:55 AM Referred By: REFERRED SELF Confirmed By:Sherman Christensen
== END 2021-05-28 15:14 | disposition home or self-care (01) | DRG 308 ==
LOC: ED 02:00 → EDINP 05:16 → 2S 08:41
DX: I12.9 Hypertensive chronic kidney disease with stage 1 through stage 4 chronic kidney disease, or unspecified chronic kidney disease; I73.00 Raynaud's syndrome without gangrene; E78.5 Hyperlipidemia, unspecified; I25.10 Atherosclerotic heart disease of native coronary artery without angina pectoris; G47.33 Obstructive sleep apnea (adult) (pediatric); N18.30 Chronic kidney disease, stage 3 unspecified; M10.9 Gout, unspecified; U07.1 COVID-19; Z87.891 Personal history of nicotine dependence; I48.0 Paroxysmal atrial fibrillation; Z88.0 Allergy status to penicillin; Z88.6 Allergy status to analgesic agent; R09.02 Hypoxemia; J45.40 Moderate persistent asthma, uncomplicated; Z79.899 Other long term (current) drug therapy; R91.8 Other nonspecific abnormal finding of lung field